=== PATIENT | female | born 1985 | race Caucasian/White ===

== ENCOUNTER 2018-05-19 23:20 | Inpatient (IN) | payer BC, OTHER ==
[2018-05-20] MEDS ORDERED: ELECTROLYTE-148 SOLN 1,000 ML IV ONE (01:00)
[2018-05-20 01:22] VITALS: BMI 26.2
[2018-05-20] MEDS ORDERED: BUTORPHANOL TARTRATE 1 MG/ML VIAL IVPB ONE (01:30)
[2018-05-20] MEDS ORDERED: PROMETHAZINE HCL 25 MG/1 ML VIAL IVPB ONE (01:30)
[2018-05-20] MEDS ORDERED: FENTANYL/BUPIVACAINE/NS/PF - PCEA - 50 ML DISP.SYRIN EP ONE (01:46)
[2018-05-20 01:51] LABS: BASO % 0.6 % (0-2.0); EOS % 0.8 % (0-4.5); HEMATOCRIT 37.6 % (32.4-45.2); LYMPH % 35.5 % (8-40); MCH 31.8 pg (25.7-33.7); MCHC 34.7 g/dl (32.0-36.0); MEAN CELL VOLUME 91.7 fl (80-96); MEAN PLT VOLUME 10.6 fl (7.5-11.1); MONO % 7.6 % (3.8-10.2); NEUT % 55.5 % (42.8-82.8); PLATELET COUNT 195 K/MM3 (134-434); RDW 13.9 % (11.6-15.6)
[2018-05-20] MEDS ORDERED: NALOXONE HCL 0.4 MG/ML VIAL IVPUSH PRN (01:54)
[2018-05-20] MEDS ORDERED: FENTANYL/BUPIVACAINE/NS/PF - PCEA - 50 ML DISP.SYRIN EP SCH (02:00)
[2018-05-20 02:06] LABS: INR 0.94 (0.83-1.09); PROTHROMBIN TIME (PATIENT) 11.1 SEC (9.7-13.0)
[2018-05-20] MEDS ORDERED: BUPIVACAINE HCL/PF 0.25% (2.5MG/ML) 10 ML VIAL ONE (02:07)
[2018-05-20] MEDS ORDERED: LIDO 2%/EPI 1:200000 PRESRVFRE (20 ML SDVIAL) ONE (02:07)
[2018-05-20 02:09] LABS: ACTIVATED PTT 23.4 SECONDS (25.2-36.5)
[2018-05-20 02:20] LABS: ANION GAP 12 MMOL/L (8-16); BLOOD UREA NITROGEN 37 mg/dL (7-18); CALCIUM 8.6 mg/dL (8.5-10.1); CHLORIDE 102 mmol/L (98-107); CO2 21 mmol/L (21-32); CREATININE 0.9 mg/dL (0.55-1.3); GLUCOSE,RANDOM 125 mg/dL (74-106); POTASSIUM 3.3 mmol/L (3.5-5.1); SODIUM 135 mmol/L (136-145)
[2018-05-20] MEDS ORDERED: CITRIC ACID/SODIUM CITRATE 30 ML UNIT-DOSE CUP PO ONE (04:45)
--- NOTE | 2018-05-20 04:47 | HP ---
Past Medical History - Admission Chief Complaint: Painful contractions, ROM History of Present Illness: 32 y/o P0 female with SIUP at 38.5 weeks gestation here in labor. Pt admitted at 2cm dilated after SROm at 2200 at home. Pt 9cm dilated upon my arrival. complicated by A1GDM and pt anxiety. 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 Cardiovascular: No: AFIB, HTN Pulmonary: No: Asthma Hepatobiliary: No: Hepatitis B, Hepatitis C Renal/: No: UTI Reproductive: No: Ectopic ...: 1 ...Para: 0 ...LMP: 07/22/18 ...EDC by Dates: 04/27/18 ...EDC by Sono: 05/29/18 Heme/Onc: No: Anemia Infectious Disease: No: HIV, MRSA, STD's Psych: Yes: Anxiety - Past Surgical History Past Surgical History: Yes: None Hx Myomectomy: No Hx Transabdominal Cerclage: No - Smoking History Smoking history: Former smoker Have you smoked in the past 12 months: Yes Aproximately how many cigarettes per day: 2 If you are a former smoker, when did you quit?: 6 moths - Alcohol/Substance Use Hx Alcohol Use: No - Social History Usual Living Arrangement: Yes: With Spouse ADL: Independent History of Recent Travel: No Home Medications - Allergies Allergies/Adverse Reactions: Allergies Allergy/AdvReac Type Severity Reaction Status Date / Time No Known Allergies Allergy Verified 05/20/18 00:41 - Home Medications Home Medications: Ambulatory Orders 19 Tablet 1 tab PO DAILY 05/20/18 Review of Systems - Review of Systems Constitutional: reports: No Symptoms Eyes: reports: No Symptoms HENT: reports: No Symptoms Neck: reports: No Symptoms Cardiovascular: reports: No Symptoms Respiratory: reports: No Symptoms Gastrointestinal: reports: No Symptoms Genitourinary: reports: No Symptoms Breasts: reports: No Symptoms Reported Musculoskeletal: reports: No Symptoms Integumentary: reports: No Symptoms Neurological: reports: No Symptoms Endocrine: reports: No Symptoms Hematology/Lymphatic: reports: No Symptoms Psychiatric: reports: No Symptoms Physical Exam - Maternity Vital Signs: Vital Signs Temperature 98.1 F 05/20/18 02:00 Pulse Rate 89 05/20/18 02:00 Respiratory Rate 20 05/20/18 02:00 Blood Pressure 135/85 05/20/18 02:00 O2 Sat by Pulse Oximetry (%) Constitutional: Yes: Well Nourished, Calm, Moderate Distress (due to painful contractions) HENT: Yes: Atraumatic Neck: Yes: Supple, Trachea Midline Cardiovascular: Yes: Regular Rate and Rhythm Lungs: Clear to auscultation - Abdominal Exam/OB Fundal Height: 38 Number of Fetuses: Single Presentation: Vertex Contractions: Yes Regularity: Regular Intensity: Mod/Strong Monitor Mode: External Heart Rate (range): 125 Category: I Accelerations: Uniform Decelerations: None - Vaginal Exam/OB Speculum Exam: No Dilatation (cm): 10 Effacement (%): 100 Amniotic Membrane Status: Ruptured Presentation: Vertex/Position Station: 0 - Physical Exam Psychiatric: Yes: Alert, Oriented - Labs Lab Results: CBC, BMP 05/20/18 01:10 05/20/18 01:10 Hemorrhage Risk Assessment - Risk Factors Medium Risk Factors: Yes: None High Risk Factors: Yes: None Risk Score: 1 Risk Level: Medium Risk Problem List - Problems (1) Active labor at term Code(s): [id number] - Assessment/Plan 32 y/o with SIUP at 38.5 weeks SROM, labor fully dilated Pt to begin pushing
--- NOTE | 2018-05-20 04:49 | PN ---
Ante-Partal Exam - Subjective Subjective: Pt uncomfortable with contractions, pushing for approx 2 hours with no progress. Requesting c section. Vital Signs: Vital Signs Temperature 98.1 F 05/20/18 02:00 Pulse Rate 89 05/20/18 02:00 Respiratory Rate 20 05/20/18 02:00 Blood Pressure 135/85 05/20/18 02:00 O2 Sat by Pulse Oximetry (%) Bleeding: Yes Bleeding Description: Mild Headache: No Visual changes: No Right upper quadrant pain: No - Contractions Contractions: Yes Regularity: Regular Intensity: Mod/Strong - Exam during Labor Heart Rate: 130 Variability: Moderate Category: I Monitor Accelerations: Present Monitor Decelerations: None Exam: Vaginal Dilatation (cm): 10 Effacement (%): 100 Amniotic Membrane Status: Ruptured Presentation: Vertex Station: +1 - Assessment/Plan Assessment/Plan: Pt intolerant of contractions, unable to push effectively with contractions after 2 hours of pushing pt expresses desire for c section r/b/a discussed informed consent signed anesthesia/nursing aware
[2018-05-20] MEDS ORDERED: SENNOSIDES/DOCUSATE COMBO (SENNA PLUS) TABLET (UD) PO PRN (05:07)
[2018-05-20] MEDS ORDERED: METHYLERGONOVINE MALEATE 0.2 MG/1 ML AMP IM PRN (05:07)
[2018-05-20] MEDS ORDERED: oxyCODONE HCL 5 MG TABLET PO PRN ×2 (05:07)
[2018-05-20] MEDS ORDERED: morphine SULFATE/Preservative Free 0.5 MG/ML (1cc Syringe) EP ONE (05:08)
[2018-05-20] MEDS ORDERED: ONDANSETRON 4 MG/2 ML VIAL IVPUSH PRN (05:08)
[2018-05-20] MEDS ORDERED: ceFAZolin SODIUM 1 GM VIAL ONE (05:21)
[2018-05-20] MEDS ORDERED: PHENYLEPHRINE HCL 10 MG/1 ML SINGLE DOSE VIAL ONE (05:41)
[2018-05-20] MEDS ORDERED: MEPERIDINE HCL CARPU-JECT 25 MG/1 ML DISP.SYRIN ONE (05:48)
[2018-05-20] MEDS ORDERED: OXYTOCIN 10 UNITS/ML VIAL ONE (05:54)
[2018-05-20] MEDS: OXYTOCIN 20 UNITS in 0.9% NS 20 UNIT/1,000 ML INFUS.BAG IV SCH (07:20)
[2018-05-20] MEDS ORDERED: OXYTOCIN 20 UNITS in 0.9% NS 20 UNIT/1,000 ML INFUS.BAG IV ONE (07:24)
[2018-05-20] MEDS ORDERED: IBUPROFEN 800 MG/8 ML IJ IVPB ONE (07:51)
[2018-05-20] MEDS: IBUPROFEN 800 MG/8 ML IJ IVPB PRN (07:51)
[2018-05-20 08:39] LABS: COCAINE, UR NEGATIVE ng/ml (CUTOFF=300); METHADONE, UR NEGATIVE ng/ml (CUTOFF=300); OPIATES, URI NEGATIVE ng/ml (CUTOFF=300); PHENCYCLIDINE,URINE NEGATIVE ng/ml (CUTOFF=25); URINE AMPHETAMINES NEGATIVE ng/ml (CUTOFF=500); URINE BARBITURATES NEGATIVE ng/ml (CUTOFF=200); URINE BENZODIAZEPINES NEGATIVE ng/ml (CUTOFF=200)
[2018-05-20] MEDS: PRENATAL VITAMINS W/ FOLIC ACID TABLET (FP) PO SCH (09:04)
--- NOTE | 2018-05-20 09:06 | OP ---
Operative Note - Note: Operative Date: 05/20/18 Pre-Operative Diagnosis: failure to descend Operation: Primary LTCS Findings: normal b/l tubes and ovaries Post-Operative Diagnosis: Same as Pre-op Surgeon: Raven Gomez Cafe Cook: Collins Martinez Anesthesiologist/EMR TRAINER: Carter Paredes Anesthesia: Spinal Specimens Removed: placenta Estimated Blood Loss (mls): 600 Operative Report Dictated: Yes
[2018-05-20] MEDS: ACETAMINOPHEN 325 MG TABLET (FP) PO PRN (23:43)
[2018-05-21] MEDS ORDERED: BISACODYL 10 MG SUPP.RECT RC PRN (05:07)
[2018-05-21] MEDS: IBUPROFEN 800 MG/8 ML IJ IVPB PRN (06:00)
[2018-05-21] MEDS: IBUPROFEN 600 MG TABLET (FP) PO PRN ×2 (09:34→18:38)
[2018-05-21] MEDS: SIMETHICONE 80 MG TAB.CHEW (FP) PO PRN ×2 (09:34→18:38)
[2018-05-21] MEDS: PRENATAL VITAMINS W/ FOLIC ACID TABLET (FP) PO SCH (09:34)
[2018-05-21] MEDS: ACETAMINOPHEN 325 MG TABLET (FP) PO PRN ×2 (09:35→18:40)
[2018-05-21 09:50] LABS: BASO % 0.4 % (0-2.0); EOS % 0.3 % (0-4.5); HEMATOCRIT 27.8 % (32.4-45.2); HEMOGLOBIN 9.6 GM/dL (10.7-15.3); LYMPH % 25.8 % (8-40); MCH 32.3 pg (25.7-33.7); MCHC 34.6 g/dl (32.0-36.0); MEAN CELL VOLUME 93.2 fl (80-96); MEAN PLT VOLUME 10.1 fl (7.5-11.1); MONO % 7.4 % (3.8-10.2); NEUT % 66.1 % (42.8-82.8); PLATELET COUNT 139 K/MM3 (134-434); RBC 2.99 M/mm3 (3.60-5.2); RDW 14.4 % (11.6-15.6)
--- NOTE | 2018-05-21 11:44 | PN ---
Progress Note (SOAP) - Subjective Chief Complaint: Pt doing well - Current Medications Current Medications: Active Medications Acetaminophen (Tylenol -) 650 mg PO Q4H PRN PRN Reason: FEVER Last Admin: 05/21/18 09:35 Dose: 650 mg Bisacodyl (Dulcolax Suppository -) 10 mg RC PRN PRN PRN Reason: CONSTIPATION Diphenhydramine HCl (Benadryl Injection -) 25 mg IVPUSH Q4H PRN PRN Reason: Pruritis Last Admin: 05/21/18 00:49 Dose: 25 mg Ibuprofen (Motrin -) 600 mg PO Q4H PRN PRN Reason: PAIN LEVEL 1 - 3 Last Admin: 05/21/18 09:34 Dose: 600 mg Ibuprofen (Caldolor Injection -) 800 mg IVPB Q8H PRN PRN Reason: PAIN LEVEL 6-10 Last Admin: 05/21/18 06:00 Dose: 800 mg Methylergonovine Maleate (Methergine Injection -) 0.2 mg IM Q4H PRN PRN Reason: Excessive Bleeding (L&D) Naloxone HCl (Narcan -) 0.4 mg IVPUSH PRN PRN PRN Reason: Sedation Ondansetron HCl (Zofran Injection) 4 mg IVPUSH Q4H PRN PRN Reason: NAUSEA Oxycodone HCl (Roxicodone -) 10 mg PO Q4H PRN PRN Reason: PAIN LEVEL 7 - 10 Oxycodone HCl (Roxicodone -) 5 mg PO Q4H PRN PRN Reason: PAIN LEVEL 4 - 6 Multivit/Folic Acid/Iron ( Vitamins (Sjr) -) 1 tab PO DAILY HELIO Last Admin: 05/21/18 09:34 Dose: 1 tab Senna/Docusate Sodium (Pericolace -) 2 tablet PO HS PRN PRN Reason: CONSTIPATION Simethicone (Mylicon -) 80 mg PO Q4H PRN PRN Reason: GAS Last Admin: 05/21/18 09:34 Dose: 80 mg - Objective Vital Signs: Vital Signs Temperature 97.6 F 05/21/18 09:00 Pulse Rate 64 05/21/18 09:00 Respiratory Rate 18 05/21/18 09:00 Blood Pressure 118/73 05/21/18 09:00 O2 Sat by Pulse Oximetry (%) 100 05/20/18 07:52 Constitutional: Yes: Well Nourished, No Distress Neck: Yes: WNL Cardiovascular: Yes: WNL Respiratory: Yes: WNL, Regular, CTA Bilaterally ....Post : Yes: Uterus firm, Uterus non-tender Musculoskeletal: Yes: WNL Extremities: Yes: WNL Peripheral Pulses WNL: No Edema: No Wound/Incision: Yes: Clean/Dry, Well Approximated, Dressing Dry and Intact Labs Lab Results: CBC, BMP 05/21/18 08:00 05/20/18 01:10 Assessment/Plan SP CS for failure to descend POD 1 Plan OOB continue present management
[2018-05-21] MEDS: DEXTROSE 5%-LACTATED RINGERS 1,000 ML IV SCH (20:14)
[2018-05-22] MEDS: SIMETHICONE 80 MG TAB.CHEW (FP) PO PRN ×2 (00:08→11:02)
[2018-05-22] MEDS: IBUPROFEN 600 MG TABLET (FP) PO PRN ×2 (00:08→11:02)
[2018-05-22] MEDS: ACETAMINOPHEN 325 MG TABLET (FP) PO PRN ×2 (00:09→11:03)
[2018-05-22] MEDS: OXYTOCIN 20 UNITS in 0.9% NS 20 UNIT/1,000 ML INFUS.BAG IV SCH (04:31)
--- NOTE | 2018-05-22 08:08 | PN ---
Post Progress Note - Subjective Subjective: Pt doing well, no complaints. Tolerating diet. Ambulating without difficulty. Voiding, passing flatus and BM. Desires to go home today. Type of Delivery: Primary C/S Vital Signs: Vital Signs Temperature 98.0 F 05/21/18 22:00 Pulse Rate 82 05/21/18 22:00 Respiratory Rate 18 05/21/18 22:00 Blood Pressure 124/86 05/21/18 22:00 O2 Sat by Pulse Oximetry (%) 100 05/20/18 07:52 Breast Exam: Yes: Soft Uterus: Yes: Fundus Firm Incision: Yes: Sutures intact Abdomen/GI: Yes: Abdomen soft, Passing flatus, Tolerating PO. No: Abdominal Distention, Tender Lochia: Yes: Rubra Lochia, amount: Small Extremities: Yes: Calves non-tender. No: Edema Perineum: Yes: Intact Activity: Ambulating - Labs Labs: CBC WBC 17.0 K/mm3 (4.0-10.0) H 05/21/18 08:00 RBC 2.99 M/mm3 (3.60-5.2) L 05/21/18 08:00 Hgb 9.6 GM/dL (10.7-15.3) L 05/21/18 08:00 Hct 27.8 % (32.4-45.2) L D 05/21/18 08:00 MCV 93.2 fl (80-96) 05/21/18 08:00 MCH 32.3 pg (25.7-33.7) 05/21/18 08:00 MCHC 34.6 g/dl (32.0-36.0) 05/21/18 08:00 RDW 14.4 % (11.6-15.6) 05/21/18 08:00 Plt Count 139 K/MM3 (134-434) D 05/21/18 08:00 MPV 10.1 fl (7.5-11.1) 05/21/18 08:00 Absolute Neuts (auto) 11.2 K/mm3 (1.5-8.0) H 05/21/18 08:00 Neutrophils % 66.1 % (42.8-82.8) 05/21/18 08:00 Lymphocytes % 25.8 % (8-40) D 05/21/18 08:00 Monocytes % 7.4 % (3.8-10.2) 05/21/18 08:00 Eosinophils % 0.3 % (0-4.5) 05/21/18 08:00 Basophils % 0.4 % (0-2.0) 05/21/18 08:00 Nucleated RBC % 0 % (0-0) 05/21/18 08:00 Problem List - Problems (1) Active labor at term Code(s): QOV4190 - (2) delivery delivered Code(s): O82 - ENCOUNTER FOR DELIVERY WITHOUT INDICATION Assessment/Plan 32 y/o POD#2 s/p primary delivery AFVSS Anemia, continue PNVs and will Rx Iron at home regular diet encourage ambulation ok to discharge home today if baby discharged from nursery with f/u next week in office
--- NOTE | 2018-05-22 08:17 | DS ---
Physical Exam-PRODUCT ENGINEERING MANAGER Vital Signs: Vital Signs Temperature 98.0 F 05/21/18 22:00 Pulse Rate 82 05/21/18 22:00 Respiratory Rate 18 05/21/18 22:00 Blood Pressure 124/86 05/21/18 22:00 O2 Sat by Pulse Oximetry (%) 100 05/20/18 07:52 Constitutional: Yes: Well Nourished, No Distress, Calm Eyes: Yes: Conjunctiva Clear, EOM Intact HENT: Yes: Atraumatic, Normocephalic Neck: Yes: Supple, Trachea Midline Cardiovascular: Yes: Regular Rate and Rhythm Respiratory: Yes: Regular Gastrointestinal: Yes: Normal Bowel Sounds, Soft ....Post : Yes: Uterus firm, Uterus non-tender Extremities: Yes: WNL Wound/Incision: Yes: Clean/Dry, Well Approximated Neurological: Yes: Alert, Oriented Psychiatric: Yes: Alert, Oriented Labs: CBC, BMP 05/21/18 08:00 05/20/18 01:10 Delivery - Delivery Section: Primary, Low Flap Transverse Type of Anesthesia: Spinal Episiotomy/Laceration: None EBL (cc): 600 Delivery, Single - Stages of Labor Date 1st Stage Initiatied: 05/19/18 Time 1st Stage Initiated: 22:00 Date 2nd Stage Initiated: 05/20/18 Time 2nd Stage Initiated: 03:00 Date of Delivery: 05/20/18 Time of Delivery: 05:28 Time Placenta Delivered: 05:29 - Condition of Canvas Cutter Hand/Gore Cutter Present: Yes Name: Adeline Upton Infant Gender: Male Weight: 6 lb 12 oz Position: OA Total Hours ROM (Hrs/Mins): 7hrs.29mins. - 1 Minute Total Score: 9 5 Minutes Total Score: 9 - Feeding Plan Initial Plan: Elected not to breastfeed exclusively throughout hospitalization Discharge Summary Reason For Visit: LABOR Current Active Problems Active labor at term (Acute) delivery delivered (Acute) Hospital Course: Pt admitted on 05/20 with complaints of contractions and rupture of membranes. Pt progressed to fully dilated and pushing, pushed for 2 hours with no descent at which time the patient requested delivery. Pt underwent uncomplicated c section and had an uncomplicated post course and was discharged home on post op day 2. Condition: Good - Instructions Diet, Activity, Other Instructions: Physical activity Resume your normal everyday activity as tolerated no heavy lifting or strenuous exercise until seen by your surgeon. You may walk unlimited amounts and climb stairs. You may resume driving the car when you feel safe and comfortable behind the wheel. No sexual activity as instructed. Wound care If there are tapes on the skin leave them in place. They will peel off in the next 7 to 10 days. Do Not Peel them off. You may shower the day after surgery. If there are tapes present on the skin, you may shower over them. Diet There are no dietary restrictions. Eat healthy, high-fiber foods. Drink 6 to 8 glasses of liquid each day. This will assist in keeping your bowels regular. Pain management You may take Tylenol and/or Ibuprofen (for example, Motrin, Advil etc.) as needed for pain. If you need anything stronger for pain please inform your doctor. Call MD for any of the following: Severe pain not relieved by medication Fever of 101 or higher Excessive bleeding or drainage on dressing Inability to urinate Disposition: HOME - Home Medications Comprehensive Discharge Medication List: Ambulatory Orders 19 Tablet 1 tab PO DAILY 05/20/18 Ibuprofen [Motrin -] 600 mg PO QID PRN #28 tablet 05/22/18
[2018-05-22 08:46] VITALS: BP 145/83; PULSE 76; TEMP 97.9
[2018-05-22 09:07] LABS: BASO % 0.4 % (0-2.0); HEMATOCRIT 27.6 % (32.4-45.2); HEMOGLOBIN 9.6 GM/dL (10.7-15.3); MCH 31.7 pg (25.7-33.7); MCHC 34.6 g/dl (32.0-36.0); MEAN CELL VOLUME 91.7 fl (80-96); MEAN PLT VOLUME 8.8 fl (7.5-11.1); MONO % 7.1 % (3.8-10.2); NEUT % 66.5 % (42.8-82.8); PLATELET COUNT 186 K/MM3 (134-434); RBC 3.02 M/mm3 (3.60-5.2); RDW 14.2 % (11.6-15.6); WHITE BLOOD COUNT 14.5 K/mm3 (4.0-10.0)
[2018-05-22] MEDS: PRENATAL VITAMINS W/ FOLIC ACID TABLET (FP) PO SCH (10:56)
--- NOTE | 2018-06-01 16:20 | PATH ---
Surgical Pathology Report Patient Name: SHAUNA NARVAEZ [facility]. Rec. #: [id number] /Age/Gender: 1985 (Age: 32) / F Account: [id number] Location: [facility] OBS/PACKAGING SUPERVISOR Taken: 05/20/2018 Received: 05/20/2018 Reported: 06/01/2018 Physicians: Fantasma Duncan M.D. Specimen(s) Received PLACENTA Clinical History , 38.5 weeks gestation, gestational [id number], positive BV Final Diagnosis PLACENTA: THIRD TRIMESTER PLACENTA. TRIVASCULAR CORD. MEMBRANES WITH NO DIAGNOSTIC ABNORMALITIES. Electronically Signed Robby Foster M.D. Gross Description The specimen is received fresh labeled placenta and is a 394 gram, 19.0 x 14.5 x 2.3 cm. placenta with attached membranes and umbilical cord. The attached membranes are ludwig, translucent with focal opacities and insert marginally. The umbilical cord measures 33 cm. in length and averages 1 cm. in diameter. The cord inserts eccentrically, 4.5 cm. to the nearest margin. No true knots or strictures are identified. Cut surface of the umbilical cord reveals 3 vessels. The surface is richardson-blue with minimal fibrin deposition and appropriate caliber vessels. The maternal surface is red-brown with focal defects. Sectioning reveals red-brown, spongy parenchyma. No lesions are identified. Section Hand sections are submitted in three cassettes as follows: 1- membrane rolls and umbilical cord; 2-3- full thickness sections of placenta. 05/31/2018 [facility]05/31/2018
== END 2018-05-22 13:03 | disposition home or self-care (01) | DRG 788 ==
LOC: JLDR 23:20 → J3W 05-20 08:06
PROVIDERS: ADMIT Obstetrics & Gynecology; ATTEND Obstetrics & Gynecology
PROC: 10D00Z1 Extraction of Products of Conception, Low, Open Approach (ICD-10-PCS; principal; 2018-05-20)
DX: O62.1 Secondary uterine inertia (principal); O99.02 Anemia complicating childbirth; D64.9 Anemia, unspecified; Z3A.38 38 weeks gestation of pregnancy; Z37.0 Single live birth
CPT/HCPCS: 36415; 80048; 80307; 85025; 85610; 85730; 86593; 86850; 86900; 86901; 88307-TC

== ENCOUNTER 2020-10-29 08:00 | Inpatient (IN) | payer BC, OTHER ==
[2020-10-29] MEDS ORDERED: ELECTROLYTE-148 SOLN 500 ML IV SCH (08:15)
[2020-10-29] MEDS ORDERED: ELECTROLYTE-148 SOLN 1,000 ML IV SCH (08:45)
[2020-10-29] MEDS ORDERED: CITRIC ACID/SODIUM CITRATE 30 ML UNIT-DOSE CUP PO ONE (09:15)
[2020-10-29 09:18] VITALS: BMI 29.0
[2020-10-29] MEDS ORDERED: OXYTOCIN 20 UNITS in 0.9% NS 20 UNIT/1,000 ML INFUS.BAG IV ONE ×3 (09:39→12:46)
[2020-10-29] MEDS ORDERED: morphine SULFATE/PF 0.5 MG/ML (2cc Syringe - QUVA) ONE (09:40)
[2020-10-29 11:14] LABS: CORD BASE EXCESS 2.7 mmol/L (0-2); CORD PCO2 50.6 mmHg (30-78); CORD pH 7.376 (7.14-7.44)
[2020-10-29 11:25] LABS: CORD HCO3 29.6 mmHg (20-29); CORD PCO2 60.3 mmHg (30-78); CORD pH 7.309 (7.14-7.44)
[2020-10-29] MEDS ORDERED: PHENYLEPHRINE HCL 10 MG/1 ML SINGLE DOSE VIAL ONE (11:34)
[2020-10-29] MEDS ORDERED: METHYLERGONOVINE MALEATE 0.2 MG/1 ML AMP IM PRN (12:16)
[2020-10-29] MEDS ORDERED: ACETAMINOPHEN INJECTION 100 ML IVPB ONE (13:01)
[2020-10-29] MEDS ORDERED: ONDANSETRON 4 MG/2 ML VIAL IVPUSH PRN (13:07)
[2020-10-29] MEDS ORDERED: ACETAMINOPHEN 1000 MG/100 ML VIAL (NON FORMULARY) IVPB ONE (13:07)
[2020-10-29] MEDS ORDERED: OXYTOCIN 20 UNITS in 0.9% NS 1000 ML INFUS.BAG IV ONE (13:37)
[2020-10-29] MEDS: LACTATED RINGERS SOLUTION 1,000 ML IV SCH (14:10)
[2020-10-29] MEDS ORDERED: oxyCODONE HCL 5 MG TABLET ONE (15:16)
[2020-10-29] MEDS: oxyCODONE HCL 5 MG TABLET PO PRN (15:20)
[2020-10-30] MEDS: SIMETHICONE 80 MG TAB.CHEW (FP) PO PRN ×3 (01:49→20:17)
[2020-10-30] MEDS: oxyCODONE HCL 5 MG TABLET PO PRN ×3 (01:49→20:17)
[2020-10-30] MEDS: IBUPROFEN 600 MG TABLET (FP) PO PRN ×3 (01:50→20:18)
[2020-10-30 08:57] LABS: BASO % 0.6 % (0-2.0); EOS % 0.7 % (0-4.5); HEMATOCRIT 29.7 % (32.4-45.2); HEMOGLOBIN 10.3 GM/dL (10.7-15.3); LYMPH % 17.2 % (8-40); MCH 32.7 pg (25.7-33.7); MCHC 34.8 g/dl (32.0-36.0); MEAN PLT VOLUME 8.2 fl (7.5-11.1); MONO % 7.3 % (3.8-10.2); NEUT % 74.2 % (42.8-82.8); PLATELET COUNT 142 10^3/uL (134-434); RBC 3.16 M/mm3 (3.60-5.2); RDW 13.7 % (11.6-15.6); WHITE BLOOD COUNT 13.7 K/mm3 (4.0-10.0)
[2020-10-30] MEDS ORDERED: BISACODYL 10 MG SUPP.RECT RC PRN (12:16)
[2020-10-31] MEDS: IBUPROFEN 600 MG TABLET (FP) PO PRN ×4 (01:59→21:25)
[2020-10-31] MEDS: oxyCODONE HCL 5 MG TABLET PO PRN ×2 (09:57→21:24)
[2020-10-31] MEDS: LACTATED RINGERS SOLUTION 1,000 ML IV SCH (14:19)
[2020-10-31] MEDS: SIMETHICONE 80 MG TAB.CHEW (FP) PO PRN (21:24)
[2020-11-01] MEDS: SIMETHICONE 80 MG TAB.CHEW (FP) PO PRN ×2 (03:06→11:14)
[2020-11-01] MEDS: oxyCODONE HCL 5 MG TABLET PO PRN ×2 (03:07→11:14)
[2020-11-01] MEDS: IBUPROFEN 600 MG TABLET (FP) PO PRN ×2 (03:08→11:15)
[2020-11-01 10:29] VITALS: BP 137/89; PULSE 104; TEMP 98
[2020-11-01 14:05] LABS: BASO % 0.9 % (0-2.0); EOS % 1.7 % (0-4.5); HEMATOCRIT 30.2 % (32.4-45.2); HEMOGLOBIN 10.4 GM/dL (10.7-15.3); LYMPH % 25.1 % (8-40); MCH 32.8 pg (25.7-33.7); MCHC 34.5 g/dl (32.0-36.0); MEAN PLT VOLUME 8.6 fl (7.5-11.1); MONO % 6.5 % (3.8-10.2); NEUT % 65.8 % (42.8-82.8); PLATELET COUNT 252 10^3/uL (134-434); RBC 3.18 M/mm3 (3.60-5.2); RDW 13.5 % (11.6-15.6); WHITE BLOOD COUNT 12.2 K/mm3 (4.0-10.0)
== END 2020-11-01 11:52 | disposition home or self-care (01) | DRG 785 ==
LOC: JLDR 08:00 → J3W 16:25
PROVIDERS: ADMIT Obstetrics & Gynecology Maternal & Fetal Medicine; ATTEND Obstetrics & Gynecology Maternal & Fetal Medicine
PROC: 10D00Z1 Extraction of Products of Conception, Low, Open Approach (ICD-10-PCS; principal; 2020-10-29)
PROC: 0UB70ZZ Excision of Bilateral Fallopian Tubes, Open Approach (ICD-10-PCS; 2020-10-29)
DX: O34.211 Maternal care for low transverse scar from previous cesarean delivery (principal); N85.8 Other specified noninflammatory disorders of uterus; O24.424 Gestational diabetes mellitus in childbirth, insulin controlled; Z3A.39 39 weeks gestation of pregnancy; Z37.0 Single live birth; Z30.2 Encounter for sterilization
CPT/HCPCS: 36415; 36600; 82803; 85025; 86780; 88302-TC; 88307-TC; J0131